=== PATIENT | female | born 1995 | race Two or more races ===

== ENCOUNTER 2024-07-22 04:34 | Inpatient (IN) | payer OTHER ==
[~2024-07-22] VITALS: Ht 170.2 cm; Wt 2.7 kg
[2024-07-22 04:43] VITALS: BP 112/72; O2SAT 97
[2024-07-22] MEDS ORDERED: LOVENOX40 MG/0.4 SUBCUTANEO (05:42)
[2024-07-22] MEDS ORDERED: PRENATAL TABLE1 EAC1 PO (05:42)
[2024-07-22] MEDS ORDERED: CEFAZOLIN SODIUM 1,000 MG VIAL IV SCH ×2 (06:00→18:00)
[2024-07-22] MEDS ORDERED: RINGERS SOLUTION,LACTATED 1,000 ML IV SCH (06:00)
[2024-07-22 07:30] VITALS: BP 90/59
[2024-07-22 11:11] VITALS: BP 99/65
[2024-07-22] MEDS ORDERED: ERYTHROMYCIN BASE OPHT 1GM EACH TUBE OP ONE (12:44)
[2024-07-22] MEDS ORDERED: OXYTOCIN 10 UNITS/ML VIAL ONE (12:44)
[2024-07-22] MEDS ORDERED: CARBOPROST TROMETHAMINE 250 MCG/ML AMPUL IM ONE (13:14)
[2024-07-22] MEDS ORDERED: MORPHINE SULFATE 4 MG/ML VIAL IV ONE ×2 (16:20→16:50)
[2024-07-22] MEDS ORDERED: KETOROLAC TROMETHAMINE 30 MG VIAL ONE (17:33)
[2024-07-22] MEDS ORDERED: PROMETHAZINE HCL 25 MG/ML AMPUL IV SCH (18:00)
[2024-07-22] MEDS ORDERED: KETOROLAC TROMETHAMINE 30 MG VIAL IM SCH (18:00)
[2024-07-22] MEDS ORDERED: CEFAZOLIN SODIUM 1,000 MG VIAL ONE (18:01)
[2024-07-22 20:00] VITALS: BP 98/63
[2024-07-23] VITALS: BP 106/60
[2024-07-23 04:30] VITALS: BP 94/62
[2024-07-23 07:55] LABS: BASO % 0.4 % (0.1-1.2); EOS # 0.05 (0.04-0.54); EOS % 0.5 % (0.7-7.0); HEMATOCRIT 28.2 % (34.1-44.9); HEMOGLOBIN 9.4 g/dL (11.2-15.7); LYMPH # 1.78 (1.18-3.74); LYMPH % 16.7 % (19.3-53.1); MEAN CORPUSCULAR HEMOGLOBIN 26.6 pg (25.6-32.2); MONO % 9.4 % (4.7-12.5); NEUT # 7.75 (1.56-6.13); NEUT % 72.6 % (34.0-71.1); PLATELET COUNT 145 K/uL (163-369); RED BLOOD COUNT 3.53 M/uL (3.93-5.22); RED CELL DISTRIBUTION WIDTH 13.7 % (11.6-14.4)
[2024-07-23] MEDS ORDERED: NAPROXEN 500 MG TABLET PO SCH ×2 (08:15→14:00)
[2024-07-23 09:18] VITALS: BP 95/63
[2024-07-23] MEDS ORDERED: IRON FUM,PS/FOLIC/BCOMP,C NO.9 1 CAP CAPSULE PO STA (11:18)
[2024-07-23 16:55] VITALS: BP 106/68
[2024-07-23] MEDS ORDERED: IRON FUM,PS/FOLIC/BCOMP,C NO.9 1 CAP CAPSULE PO SCH (17:00)
[2024-07-23 20:50] VITALS: BP 133/63
[2024-07-24] VITALS: BP 97/65
[2024-07-24 05:00] VITALS: BP 112/69
[2024-07-24 08:00] VITALS: BP 113/70
[2024-07-24 08:08] LABS: BASO % 0.4 % (0.1-1.2); EOS # 0.13 (0.04-0.54); EOS % 1.2 % (0.7-7.0); HEMATOCRIT 28.7 % (34.1-44.9); HEMOGLOBIN 9.8 g/dL (11.2-15.7); LYMPH # 2.22 (1.18-3.74); LYMPH % 20.2 % (19.3-53.1); MEAN CORPUSCULAR HEMOGLOBIN 27.5 pg (25.6-32.2); MONO # 0.96 (0.24-0.82); MONO % 8.8 % (4.7-12.5); NEUT # 7.58 (1.56-6.13); PLATELET COUNT 177 K/uL (163-369); RED BLOOD COUNT 3.56 M/uL (3.93-5.22); RED CELL DISTRIBUTION WIDTH 13.8 % (11.6-14.4)
[2024-07-24] MEDS ORDERED: IRON FUM,PS/FOLIC/BCOMP,C NO.9 1 CAP CAPSULE PO SCH (17:00)
== END 2024-07-24 14:18 | disposition home or self-care (01) | DRG 788 ==
LOC: EDBD 04:34 → LDR 04:34 → OB/GYN 04:34 → O/R 14:24 → OB/GYN 15:30
PROVIDERS: ADMIT Specialist; ATTEND Specialist
PROC: 4A1HXCZ Monitoring of Products of Conception, Cardiac Rate, External Approach (ICD-10-PCS; 2024-07-22)
PROC: 10D00Z1 Extraction of Products of Conception, Low, Open Approach (ICD-10-PCS; principal; 2024-07-22 14:15)
DX: O32.2XX0 Maternal care for transverse and oblique lie, not applicable or unspecified (principal); Z3A.38 38 weeks gestation of pregnancy; Z37.0 Single live birth